=== PATIENT | female | born 1990 | race Caucasian/White ===

== ENCOUNTER → 2017-03-14 13:15 | Observation (INO) ==
--- NOTE | 2017-03-14 12:04 | OB/GYN Progress Note ---
Date of Encounter: 03/14/17 Time of Encounter: 12:01 - Assessment and Plan (1) 37 weeks gestation of Current Visit: Yes Status: Acute Patient here for rule out rupture of membranes Speculum exam: WNL no signs of rupture of membranes Subjective - Subjective Principal diagnosis: leaking of fluid Interval history: Patient is 26 y/o at 37w1d presents to labor and delivery with c/o leaking fluid since 829. Patient denies any vaginal bleeding or contractions. Patient reports +FM. Patient denies any urinary symptoms. Patient is a smoker and last smoked on way in to the hospital. Antepartum ROS: loss of fluid, movement normal, no vaginal bleeding, no contractions Objective - Vital Signs Vital Signs: Intake and Output 03/13/17 03/14/17 03/14/17 23:59 07:59 15:59 Other: Weight 71.8 kg Patient Weight 03/14/17 23:59 Weight 71.8 kg - Exam FHR: auscultation normal, category 1 FHR comments: 130 bpm moderate variability +15x15 accels no decels noted. Irregular contractions noted. Abdomen: Present: normal appearance, soft, gravid Cervical dilation: 3 Cervix effacement: 60 station: -2 Comments: Speculum exam: No pulling noted, nitrazine negative, negative [place]. SVE infant was ballotable.
[2017-03-14 12:11] LABS: Bilirubin,Urine Negative (Negative); Blood,Urine Negative (Negative); Clarity,Urine Cloudy (Clear); Color,Urine Yellow (Yellow); Glucose,Urine (UA) Normal (Normal); Ketones,Urine Negative (Negative); Leukocyte Esterase,Urine Small (Negative); Nitrite,Urine Negative (Negative); PH,Urine 6.5 pH Units (5.0-8.0); Protein,Urine Trace mg/dL (Neg-Trace); Specific Gravity,Urine 1.018 (1.010-1.025); Urobilinogen,Urine Normal (Normal)
[2017-03-14 12:15] LABS: Bacteria,Urine Few per hpf (None-Few); Hyaline Casts,Urine None Seen per lpf (None-Few); RBC,Urine 0-3 per hpf (0-3); Squamous Epithelial Cell,Urine Many per lpf (None-Few)
--- NOTE | 2017-03-14 13:09 | Discharge Summary ---
Date of Encounter: 03/14/17 Time of Encounter: 13:07 - Discharge Diagnosis (1) 37 weeks gestation of Priority: Primary Status: Acute (2) False labor Priority: Primary Status: Acute Comments: RNST, no cervical change noted. Discharge home follow up with Dr. Perkins as scheduled. - Discharge Medications Home Medications: Aspirin [Lo-Dose Aspirin EC] 81 mg PO DAILY 03/14/17 [History] Fluticasone Propionate Nasal [Flonase] 120 spray NS DAILY 03/14/17 [History] Pnv No.115/Iron Fumarate/FA [ 19 Chewable Tablet] 1 each PO DAILY [History] Zantac 150 mg PO BID 03/14/17 [History] Allergies/Adverse Reactions: Allergies cranberry Allergy (Verified 02/01/16 12:01) Hives Penicillins Allergy (Verified 02/01/16 12:01) Itching Data Procedures and tests throughout hospitalization: Laboratory Tests 03/14/17 12:00 Urine Color Yellow Urine Clarity Cloudy A Urine pH 6.5 Ur Specific [place] 1.018 Urine Protein Trace Urine Glucose (UA) Normal Urine Ketones Negative Urine Blood Negative Urine Nitrite Negative Urine Bilirubin Negative Urine Urobilinogen Normal Ur Leukocyte Esterase Small H Urine Microscopic RBC 0-3 Urine Microscopic WBC 3-5 H Ur Squamous Epith Cells Many H Urine Bacteria Few Hyaline Casts None Seen Labs on day of discharge: Labs from last 24 hours 03/14/17 12:00 Urine Color Yellow Urine Clarity Cloudy A Urine pH 6.5 Ur Specific [place] 1.018 Urine Protein Trace Urine Glucose (UA) Normal Urine Ketones Negative Urine Blood Negative Urine Nitrite Negative Urine Bilirubin Negative Urine Urobilinogen Normal Ur Leukocyte Esterase Small H Urine Microscopic RBC 0-3 Urine Microscopic WBC 3-5 H Ur Squamous Epith Cells Many H Urine Bacteria Few Hyaline Casts None Seen Date of admission: 03/14/17 11:02 Primary care physician: Paula Casillas, Discharging clinician: Rose Gaines Anticipated date of discharge: 03/14/17 - Patient Status Disposition: Home, Self-Care Condition: Good Functional capacity at discharge: independent ambulation - Discharge Instructions Follow Up With: Paula Casillas MD [Primary Care Provider] - Malvin Perkins DO [Partnered Physician] - - Diet and Activity Activity: increase activity as tolerated Diet: regular diet Hospital Course SUPER[employer]OR [employer] Time Attestation: Total time spent providing and/or coordinating discharge services: Time Spent: Less than 30 minutes - VTE Reasons for not Prescribing Prophylaxis: Treatment not Indicated - Low risk for VTE
== END | disposition home or self-care (01) ==
LOC: 1NENULAB

== ENCOUNTER 2017-03-18 04:12 | Inpatient (IN) ==
[~2017-03-18 04:12] MED LIST: Famotidine 20 MG/2 ML VIAL IVP PRN; Metoclopramide 10 MG/2 ML VIAL IVP PRN; Naloxone 0.4 MG/ML INJ IVP PRN; Ondansetron 4 MG/2 ML VIAL IVP PRN
[2017-03-18] MEDS ORDERED: Ringers Solution, Lactated 1,000 ML IVC SCH (04:15)
[2017-03-18 04:23] LABS: Basophils % 0.2 %; Eosinophils # 0.1 K/mcL (0.0-0.6); Eosinophils % 0.4 %; Hematocrit 34.7 % (35.3-44.9); Hemoglobin 11.7 g/dL (11.5-15.4); Immature Granulocytes % 1.1 % (0-4); Lymphocytes # 2.5 K/mcL (0.6-4.6); Mean Corpuscular HGB Conc 33.7 g/dL (31.6-35.5); Mean Corpuscular Hemoglobin 29.3 pg (28.0-33.3); Mean Corpuscular Volume 86.8 fL (83.0-100.0); Mean Platelet Volume 10.7 fL (9.4-12.4); Monocytes # 1.3 K/mcL (0.0-1.3); Monocytes % 6.5 %; Neutrophils # 16.3 K/mcL (1.6-8.9); Platelet Count 316 K/mcL (140-400); Segmented Neutrophils % 79.8 %
--- NOTE | 2017-03-18 04:46 | Anesthesia Evaluation PreOp ---
Date of Encounter: 03/18/17 Time of Encounter: 04:45 - Past History Planned Operation: gokul Cardiac History: Denies any Significant Hx Pulmonary History: Smoker (1/2 pack per day) AG SERVICE MANAGER History: Denies Any Significant HX Other Medical History: Bleeding (Hereditary Factor V, no history of DVT, daily ASA use off for 2 days) Anesthesia History: No Prior Anesthetic Complications : Yes (, 37 plus 5) Alcohol Use: none Drug use: none Medications and Allergies Aspirin [Lo-Dose Aspirin EC] 81 mg PO DAILY 03/14/17 [History] Fluticasone Propionate Nasal [Flonase] 120 spray NS DAILY 03/14/17 [History] Pnv No.115/Iron Fumarate/FA [ 19 Chewable Tablet] 1 each PO DAILY [History] Zantac 150 mg PO BID 03/14/17 [History] Allergies cranberry Allergy (Verified 02/01/16 12:01) Hives Penicillins Allergy (Verified 02/01/16 12:01) Itching - Meds/Allergy Pre-op Review Medications Reviewed: Yes Allergies Reviewed: Yes Beta Blockers on Current Med List: No Anesthesia Results - Labs 03/18/17 04:10 Anesthesia Exam O2 Sat Height 1.73 m Weight 71.8 kg Height: 68 Weight: 71 - HEENT Pupil (Motor): Pupils equal Mallampati: II Teeth: Normal Oral Opening: Greater than 3 - AG SERVICE MANAGER LOC: Oriented AG SERVICE MANAGER Motor: Normal RUE, Normal LUE, Normal RLE, Normal LLE, Normal Face - Cardiac Rhythm: Regular Murmur: None JVD: No Carotid Bruit: No - Pulmonary Breath Sounds: bilateral Clear Respiratory Effort: Symmetrical Anesthesia Assess/Plan ASA Score: 2 Modified [place] Scale for Level of Consciousness: Cooperative, oriented, and tranquil Anesthetic Plan: Regional Monitoring Plan: Standard Monitors
[2017-03-18] MEDS ORDERED: Epidural Premix (fent/bupiv) 110 ML EP ONE ×2 (04:48→11:26)
[2017-03-18] MEDS ORDERED: *HR* Ropivacaine/PF 0.2% 10 ML AMPUL ONE (04:48)
[2017-03-18] MEDS ORDERED: *HR* FentaNYL (PF) 100 MCG/2 ML VIAL ONE (04:48)
[2017-03-18] MEDS ORDERED: *HR* Ropivacaine/PF 0.2% 10 ML AMPUL EP ONE (05:21)
[2017-03-18] MEDS ORDERED: EPHEDrine 50 MG/ML VIAL IVP PRN (05:21)
[2017-03-18] MEDS ORDERED: *HR* FentaNYL (PF) 100 MCG/2 ML VIAL EP ONE (05:21)
[2017-03-18] MEDS ORDERED: Epidural Premix (fent/bupiv) 110 ML EP SCH (05:30)
--- NOTE | 2017-03-18 08:02 | OB/GYN History & Physical ---
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 Vazquez is a 26 year old female with an EDC of 04/03/17 at 37 5/7 weeks presenting to L&D in active labor. History significant for Factor V deficiency and MTHFR. Pt. had MFM consult who recommended Lovenox post delivery for 6 weeks. She is Rubella non-immune, O positive, GBS negative. Past Med Surg Social Fam HX - Past Medical History Medical history: no medical history Psychiatric history: no psych history - Past Surgical History Surgical History: other - Social History Smoking Status: Current every day smoker Packs per day: 1/2 Smokeless Tobacco Status: No Alcohol use: none Drug use: none - Family History Father Adopted: No Living Status: Still Living Hx Family Cardiac Disorders: Yes (hypertension) Hx Family Respiratory Disorders: No Hx Family Cancer: No Hx Family GI Disorders: No Hx Family Endocrine Disorder: No Hx Family Neuromuscular Disorders: No Hx Family Neurologic Disorders: No Hx Family HEENT Disorders: No Hx Family Autoimmune Disorders: No Obstetrical History - Pregnancies : 5 Ab's: 4 - History/Complications History/Complications: History of ectopic X3, two treated with MTX, one spontaneously resolved. History of miscarriage treated with D&C. Medications and Allergies Aspirin [Lo-Dose Aspirin EC] 81 mg PO DAILY 03/14/17 [History] Fluticasone Propionate Nasal [Flonase] 120 spray NS DAILY 03/14/17 [History] Pnv No.115/Iron Fumarate/FA [ 19 Chewable Tablet] 1 each PO DAILY [History] Zantac 150 mg PO BID 03/14/17 [History] Allergies cranberry Allergy (Verified 02/01/16 12:01) Hives Penicillins Allergy (Verified 02/01/16 12:01) Itching Exam - Constitutional Constitutional: well developed, well nourished, no acute distress, other ( comfortable with epidural) - HEENT HEENT: Normocephaly - Neck Neck exam: normal inspection - Lungs Respiratory exam: CTAB - Cardiovascular Cardiovascular exam: RRR - Abdomen Abdomen: Present: gravid - Extremities Extremities exam: normal inspection - Cervix Dilation: 7 (7-8) Effacement: 100 (Ballotable) Station: -1 Results Result Diagrams: 03/18/17 04:10 Abnormal lab results WBC 20.5 K/mcL (4.3-11.1) H 03/18/17 04:10 Hct 34.7 % (35.3-44.9) L 03/18/17 04:10 Neutrophils # 16.3 K/mcL (1.6-8.9) H 03/18/17 04:10 All other labs normal. - VTE Reasons for not Prescribing Prophylaxis: Treatment not Indicated - Low risk for VTE
--- NOTE | 2017-03-18 10:30 | OB Labor Progress Note ---
Date of Encounter: 03/18/17 Time of Encounter: 10:29 Labor Progress Note - Subjective Subjective: Pt. doing well, comfortable - Cervix Cervix: 9/100%/VTX/0 - Heart Tones Heart Tones: reassuring - Interventions Interventions: AROM, moderate amount of clear fluid.
[2017-03-18] MEDS ORDERED: Oxytocin 20 units/ LR 1000 mL 20 UNIT/1,000 ML BAG IVC ONE (10:49)
[2017-03-18] MEDS ORDERED: Lidocaine 1% 20 ML MDV ONE (10:56)
[2017-03-18] MEDS ORDERED: Oxytocin 20 units/ LR 1000 mL 20 UNIT/1,000 ML BAG IVC SCH ×2 (11:48→16:47)
--- NOTE | 2017-03-18 15:57 | OB/GYN Procedure Note ---
Delivery - Delivery Date: 03/18/17 Provider: Malvin Perkins Intrapartum events: none Delivery induction: none Delivery augmentation: rupture of membranes, pitocin Delivery monitor: external FHT, external uterine Anesthesia: epidural Estimated Blood Loss: 300 - (s) A Delivery Date: 03/18/17 Delivery Time: 15:28 Presentation: vertex Position: MANDY Route of delivery: Gender: Female Viability: Viable Pounds: 6 Ounces: 11 Weight Gram: 3020 kg at 1 minute: 8 at 5 mins: 9 Shoulder Dystocia: not encountered Specimens collected: cord blood Placenta: spontaneous Cord: nuchal cord, 3 umbilical vessels, delivered through nuchal - Repair Episiotomy: none Laceration Description: Labial - Complications Delivery complications: none - Disposition Mom disposition: stable in LDR [place] disposition: stable in LDR - Comments Comments: Patient progressed to complete dilatation and had a spontaneous vaginal delivery of a viable female infant. scores were 8 and 9 at 1 and 5 minutes respectively, and the weighed 6 lbs. 11 oz. nuchal cord 1 was present and was reduced at the time of delivery. The placenta delivered spontaneously and appeared to be intact. Bilateral labial lacerations were repaired with 4-0 Vicryl suture. All sponge needle and sponge counts reported as correct. Estimated blood loss 300 mL. No shoulder dystocia was encountered.
[2017-03-18] MEDS ORDERED: Measles/Mumps/Rubella Vacc 0.5 ML VIAL SQ PRN (16:47)
[2017-03-18] MEDS ORDERED: Ibuprofen 600 MG TABLET PO PRN (16:47)
[2017-03-18] MEDS: Acetaminophen 325 MG TABLET PO PRN (19:23)
[2017-03-18] MEDS ORDERED: *HR* Enoxaparin 40 MG/0.4 ML SYRINGE SQ SCH (22:00)
[2017-03-18] MEDS ORDERED: Benzocaine/Menthol 56 GM AEROSOL SPRAY TP PRN (22:51)
[2017-03-19 04:29] LABS: Basophils % 0.2 %; Eosinophils # 0.1 K/mcL (0.0-0.6); Eosinophils % 0.5 %; Hematocrit 35.6 % (35.3-44.9); Hemoglobin 11.9 g/dL (11.5-15.4); Lymphocytes # 3.1 K/mcL (0.6-4.6); Lymphocytes % 15.6 %; Mean Corpuscular HGB Conc 33.4 g/dL (31.6-35.5); Mean Corpuscular Hemoglobin 29.8 pg (28.0-33.3); Mean Corpuscular Volume 89.2 fL (83.0-100.0); Mean Platelet Volume 10.8 fL (9.4-12.4); Monocytes # 1.6 K/mcL (0.0-1.3); Neutrophils # 14.8 K/mcL (1.6-8.9); Platelet Count 306 K/mcL (140-400); Red Blood Count 3.99 M/mcL (3.82-4.97); Red Cell Distribution Width 13.3 % (11.5-14.5); Segmented Neutrophils % 74.7 %
[2017-03-19 07:55] VITALS: BP 131/83
--- NOTE | 2017-03-19 08:34 | Discharge Summary ---
Date of Encounter: 03/19/17 Time of Encounter: 08:32 - Discharge Diagnosis (1) Vaginal delivery Priority: Primary Status: Acute Comments: continue routine care discharge home today follow up in 4-[address] Perkins (2) Breast feeding status of mother Priority: Secondary Status: Acute Comments: support prn (3) Factor V deficiency Priority: Secondary Status: Chronic Comments: Continue lovenox 40mg SQ x 4 weeks (4) Rubella non-immune status, antepartum Priority: Secondary Status: Chronic Comments: MMR prior to discharge - Discharge Medications Prescriptions: Ibuprofen [Motrin] 600 mg PO Q6HR PRN #60 tablet PRN Reason: Cramping Breast Pump [BREAST PUMP] 1 each .ROUTE AD #1 each Enoxaparin [Lovenox] 40 mg SQ DAILY 28 Days Home Medications: Fluticasone Propionate Nasal [Flonase] 120 spray NS DAILY 03/14/17 [History] Pnv No.115/Iron Fumarate/FA [ 19 Chewable Tablet] 1 each PO DAILY [History] Zantac 150 mg PO BID 03/14/17 [History] Breast Pump [BREAST PUMP] 1 each .ROUTE AD #1 each 03/19/17 [Rx] Enoxaparin [Lovenox] 40 mg SQ DAILY 28 Days 03/19/17 [Rx] Ibuprofen [Motrin] 600 mg PO Q6HR PRN #60 tablet 03/19/17 [Rx] Vit/FA 1 each PO DAILY tablet 03/19/17 [Rx] Allergies/Adverse Reactions: Allergies cranberry Allergy (Verified 02/01/16 12:01) Hives Penicillins Allergy (Verified 02/01/16 12:01) Itching Data Procedures and tests throughout hospitalization: Laboratory Tests 03/18/17 03/19/17 04:10 04:15 WBC 20.5 H 19.7 H RBC 4.00 3.99 Hgb 11.7 11.9 Hct 34.7 L 35.6 MCV 86.8 89.2 MCH 29.3 29.8 MCHC 33.7 33.4 RDW 13.0 13.3 Plt Count 316 306 MPV 10.7 10.8 Immature Gran % 1.1 1.0 Seg Neutrophils % 79.8 74.7 Lymphocytes % 12.0 15.6 Monocytes % 6.5 8.0 Eosinophils % 0.4 0.5 Basophils % 0.2 0.2 Neutrophils # 16.3 H 14.8 H Lymphocytes # 2.5 3.1 Monocytes # 1.3 1.6 H Eosinophils # 0.1 0.1 Basophils # 0.0 0.0 Labs on day of discharge: Labs from last 24 hours 03/19/17 04:15 WBC 19.7 H RBC 3.99 Hgb 11.9 Hct 35.6 MCV 89.2 MCH 29.8 MCHC 33.4 RDW 13.3 Plt Count 306 MPV 10.8 Immature Gran % 1.0 Seg Neutrophils % 74.7 Lymphocytes % 15.6 Monocytes % 8.0 Eosinophils % 0.5 Basophils % 0.2 Neutrophils # 14.8 H Lymphocytes # 3.1 Monocytes # 1.6 H Eosinophils # 0.1 Basophils # 0.0 Date of admission: 03/18/17 04:12 Consults: 03/18/17 16:47 Consult to Pattern Lease Inspector [CONS] Routine Comment: Vaginal delivery, consult needed Discharging clinician: Rose Gaines Anticipated date of discharge: 03/19/17 - Patient Status Disposition: Home, Self-Care Condition: Good Functional capacity at discharge: independent ambulation - Discharge Instructions Follow Up With: Malvin Perkins DO [Partnered Physician] - - Diet and Activity Activity: increase activity as tolerated Diet: regular diet Hospital Course Delivery: Episiotomy: none Laceration: other complications: none Discharge diagnosis: IUP at term delivered baby: female (breast feeding) Time Attestation: Total time spent providing and/or coordinating discharge services: Time Spent: Less than 30 minutes Exam - Constitutional Vitals: Temp Pulse Resp BP Pulse Ox 98.1 F 100 12 131/83 96 03/19/17 07:30 03/19/17 07:30 03/19/17 07:30 03/19/17 07:30 03/19/17 07:30 General appearance IM: A&O X 3, pleasant, answers questions appropriately - Respiratory Respiratory exam: Present: CTAB - Cardiovascular Cardiovascular exam IM: Present: RRR, +S1, +S2 - GI/Abdominal GI/Abdominal exam IM: normal bowel sounds - Uterine Tone: Firm Uterus Position: 1 Finger Below Umbilicus, Midline - Extremities Exam Extremities exam IM: Present: full ROM, normal capillary refill, normal inspection - Neurological Exam Neurological exam: alert, oriented X3, reflexes normal
[2017-03-19] MEDS ORDERED: Prenatal Vit/FA 1 EACH TABLET PO SCH (09:00)
[2017-03-19] MEDS: Acetaminophen 325 MG TABLET PO PRN (13:40)
== END 2017-03-19 18:37 | disposition home or self-care (01) | DRG 560 ==
LOC: 1NENULAB → 1NENUOBS 18:14
PROVIDERS: ADMIT Obstetrics & Gynecology; ATTEND Obstetrics & Gynecology